=== PATIENT | female | born 1965 | race Caucasian/White ===

== ENCOUNTER 2022-10-15 17:05 | Emergency (ER) | payer MEDICARE ==
[2022-10-15 19:03] LABS: ESTIMATED GFR 108 mL/min (>60)
[2022-10-15 19:32] VITALS: BP 116/72; PULSE 82
== END 2022-10-15 20:20 | disposition home or self-care (01) ==
LOC: JP.ED 17:05
DX: N10 Acute pyelonephritis (principal); Z88.8 Allergy status to other drugs, medicaments and biological substances; Z79.899 Other long term (current) drug therapy
CPT/HCPCS: 36415; 80053; 81001; 85025; 86140; 87086; 87088; 87186; 99283

== ENCOUNTER 2022-11-08 20:17 | Emergency (ER) | payer MEDICARE ==
[2022-11-08 21:51] LABS: ESTIMATED GFR 108 mL/min (>60)
[2022-11-08 21:54] VITALS: BP 130/99; PULSE 79
== END 2022-11-08 23:05 | disposition home or self-care (01) ==
LOC: JP.ED 20:17
DX: R42 Dizziness and giddiness (principal); K21.9 Gastro-esophageal reflux disease without esophagitis; Z88.8 Allergy status to other drugs, medicaments and biological substances; Z79.899 Other long term (current) drug therapy; Z86.16 Personal history of COVID-19
CPT/HCPCS: 36415; 80053; 81001; 85025; 93971-RT; 99282; 99284

== ENCOUNTER 2023-03-30 21:09 | Emergency (ER) | payer MEDICARE ==
[2023-03-30] MEDS ORDERED: Morphine 2 MG/ML SYRINGE IVPUSH ONE (21:26)
[2023-03-30] MEDS ORDERED: Ondansetron 4 MG/2 ML SDV IVPUSH ONE (21:26)
[2023-03-30] MEDS ORDERED: Naloxone 0.4 MG/ML SDV IVPUSH PRN (21:26)
[2023-03-30] MEDS ORDERED: Sodium Chloride 0.9% 1,000 ML IV SCH (21:30)
[2023-03-30 22:02] LABS: BASOPHILS ABSOLUTE AUTO 0.04 K/uL (0.00-0.10); BASOPHILS PERCENT AUTO 0.2 % (0.1-1.3); HEMATOCRIT 36.9 % (34.3-46.0); HEMOGLOBIN 12.5 g/dL (11.2-15.5); IMMATURE GRAN PERCENT AUTO 0.4 % (0.0-0.7); LYMPHOCYTES ABSOLUTE AUTO 0.46 K/uL (0.8-3.3); LYMPHOCYTES PERCENT AUTO 2.1 % (11.4-47.7); MEAN CORPUSCULAR HGB CONC 33.9 g/dL (31.6-35.5); MEAN CORPUSCULAR VOLUME 100.3 fL (81.4-99.0); MONOCYTES ABSOLUTE AUTO 1.08 K/uL (0.20-0.90); MONOCYTES PERCENT AUTO 4.9 % (3.3-12.6); NEUTROPHILS ABSOLUTE AUTO 20.57 K/uL (1.0-7.6); NEUTROPHILS PERCENT AUTO 92.4 % (40.0-78.1); PLATELET COUNT,PLT 557 K/uL (130-375); RED BLOOD CELL COUNT 3.68 M/uL (3.77-5.24); WHITE BLOOD CELL COUNT,WBC 22.3 K/uL (3.2-11.0)
[2023-03-30 22:10] LABS: MAGNESIUM 2.4 mg/dL (1.8-2.4)
[2023-03-30 22:22] LABS: A/G RATIO 0.8 (1.2-2.2); ALANINE AMINOTRANSFERASE,ALT 35 U/L (12-78); ALBUMIN 3.1 g/dL (3.4-5.0); ALKALINE PHOSPHATASE 147 U/L (46-116); ASPARTATE AMNIOTRANSFERASE,AST 32 U/L (15-37); BILIRUBIN TOTAL 0.8 mg/dL (0.2-1.0); BLOOD UREA NITROGEN,BUN 16 mg/dL (7-18); CARBON DIOXIDE,CO2 27 mmol/L (21-32); CHLORIDE,CL 102 mmol/L (100-108); CREATININE 0.5 mg/dL (0.6-1.0); EST CRCL DRUG DOSING (CG) 87.02 mL/min; ESTIMATED GFR 108 mL/min (>60); GLUCOSE RANDOM 109 mg/dL (74-106); POTASSIUM,K 3.2 mmol/L (3.6-5.2); PROTEIN TOTAL,TP 6.9 g/dL (6.4-8.2); SODIUM,NA 140 mmol/L (140-148)
[2023-03-30 22:24] LABS: ANION GAP 14.2 mmol/L (5.0-14.0)
[2023-03-30] MEDS: Piperacillin/Tazobactam 3.375 GM in Sodium Chloride 0.9% 50 ML IV SCH (23:06)
[2023-03-30] MEDS ORDERED: Potassium Chloride 20 MEQ in Premix Bag 1 BAG IV ONE (23:23)
[2023-03-31] MEDS ORDERED: Morphine 2 MG/ML SYRINGE IVPUSH ONE (00:01)
[2023-03-31] MEDS ORDERED: Bisacodyl 5 MG Tab PO PRN (01:27)
[2023-03-31] MEDS ORDERED: Ondansetron 4 MG/2 ML SDV IV PRN (01:27)
[2023-03-31] MEDS ORDERED: Pantoprazole 40 MG Vial IV ONE (01:27)
[2023-03-31] MEDS ORDERED: Enoxaparin 40 MG/0.4 ML Syringe SUBCUT SCH ×2 (01:30→21:00)
[2023-03-31] MEDS ORDERED: Sodium Chloride 0.9% 1,000 ML IV SCH ×2 (01:30→12:00)
[2023-03-31] MEDS: Morphine 2 MG/ML SYRINGE IVPUSH PRN ×2 (02:21→17:50)
[2023-03-31] MEDS: Piperacillin/Tazobactam 3.375 GM in Sodium Chloride 0.9% 50 ML IV SCH (04:09)
[2023-03-31 05:49] LABS: BASOPHILS ABSOLUTE AUTO 0.03 K/uL (0.00-0.10); BASOPHILS PERCENT AUTO 0.1 % (0.1-1.3); HEMATOCRIT 34.8 % (34.3-46.0); HEMOGLOBIN 11.8 g/dL (11.2-15.5); IMMATURE GRAN ABSOLUTE AUTO 0.12 K/uL (0.00-0.23); IMMATURE GRAN PERCENT AUTO 0.5 % (0.0-0.7); LYMPHOCYTES ABSOLUTE AUTO 0.92 K/uL (0.8-3.3); LYMPHOCYTES PERCENT AUTO 4.2 % (11.4-47.7); MEAN CORPUSCULAR HGB CONC 33.9 g/dL (31.6-35.5); MEAN CORPUSCULAR VOLUME 100.3 fL (81.4-99.0); MONOCYTES ABSOLUTE AUTO 0.97 K/uL (0.20-0.90); MONOCYTES PERCENT AUTO 4.4 % (3.3-12.6); NEUTROPHILS ABSOLUTE AUTO 20.04 K/uL (1.0-7.6); NEUTROPHILS PERCENT AUTO 90.8 % (40.0-78.1); PLATELET COUNT,PLT 553 K/uL (130-375); RED BLOOD CELL COUNT 3.47 M/uL (3.77-5.24); WHITE BLOOD CELL COUNT,WBC 22.1 K/uL (3.2-11.0)
[2023-03-31 06:09] LABS: CALCIUM 7.9 mg/dL (8.5-10.1); CREATININE 0.5 mg/dL (0.6-1.0); EST CRCL DRUG DOSING (CG) 87.02 mL/min; POTASSIUM,K 3.6 mmol/L (3.6-5.2)
[2023-03-31 06:11] LABS: ANION GAP 13.6 mmol/L (5.0-14.0)
[2023-03-31] MEDS ORDERED: Piperacillin/Tazobactam/Dext 3.375 GM in Premix Bag 1 BAG IV SCH (10:00)
[2023-03-31] MEDS: Acetaminophen 325 MG Tab PO PRN ×2 (10:02→22:30)
[2023-03-31] MEDS: Folic Acid 1 MG Tab PO SCH (10:03)
[2023-03-31] MEDS: Docusate Sodium 100 MG Cap PO SCH ×2 (10:04→21:54)
[2023-03-31] MEDS: oxyCODONE 5 MG Tab PO PRN ×2 (10:04→21:54)
[2023-03-31] MEDS: Vitamin B6-pyridOXINE 50 MG Tab PO SCH (10:04)
[2023-03-31] MEDS ORDERED: Bisacodyl 5 MG Tab PO ONE (10:30)
[2023-03-31] MEDS ORDERED: Metoclopramide 10 MG/2 ML SDV IVPUSH ONE (11:30)
[2023-03-31] MEDS ORDERED: Polyethylene Glycol 3350 Powder 17 GM Packet PO ONE (11:39)
[2023-03-31 13:06] LABS: APPEARANCE,URINE SLIGHTLY CLOUDY (CLEAR); BILIRUBIN,URINE MODERATE (NEGATIVE); COLOR,URINE YELLOW (YELLOW); GLUCOSE,URINE NEGATIVE (NEGATIVE); KETONES,URINE 15 mg/dL (NEGATIVE); LEUKOCYTE ESTERASE,URINE NEGATIVE (NEGATIVE); NITRITE,URINE NEGATIVE (NEGATIVE); OCCULT BLOOD,URINE MODERATE (NEGATIVE); PH,URINE 5.5 (5.0-8.0); PROTEIN,URINE 30 mg/dL (NEGATIVE)
[2023-03-31 13:18] LABS: AMORPHOUS SEDIMENT,URINE MANY; BACTERIA,URINE FEW; EPITHELIAL CELLS,URINE MODERATE; MUCUS,URINE MANY; WBC,URINE 0-5 (0-5)
[2023-04-01] MEDS: oxyCODONE 5 MG Tab PO PRN ×3 (03:16→14:54)
[2023-04-01 05:25] LABS: HEMOGLOBIN 9.3 g/dL (11.2-15.5); MEAN CORPUSCULAR HEMOGLOBIN 33.6 pg (31.6-35.5); MEAN CORPUSCULAR HGB CONC 33.2 g/dL (31.6-35.5); MEAN CORPUSCULAR VOLUME 101.1 fL (81.4-99.0); RED BLOOD CELL COUNT 2.77 M/uL (3.77-5.24); WHITE BLOOD CELL COUNT,WBC 14.4 K/uL (3.2-11.0)
[2023-04-01 05:39] LABS: CALCIUM 7.7 mg/dL (8.5-10.1); CREATININE 0.5 mg/dL (0.6-1.0); EST CRCL DRUG DOSING (CG) 87.02 mL/min; POTASSIUM,K 3.1 mmol/L (3.6-5.2)
[2023-04-01 05:45] LABS: ANION GAP 10.1 mmol/L (5.0-14.0)
[2023-04-01] MEDS: Folic Acid 1 MG Tab PO SCH (08:09)
[2023-04-01] MEDS: Docusate Sodium 100 MG Cap PO SCH (08:09)
[2023-04-01] MEDS: Vitamin B6-pyridOXINE 50 MG Tab PO SCH (08:09)
[2023-04-01] MEDS ORDERED: Potassium Chloride 20 MEQ Tab.ER PO ONE (09:00)
[2023-04-01 11:07] VITALS: BP 108/58; PULSE 103
== END 2023-04-01 15:10 | disposition home or self-care (01) ==
LOC: JP.ED 21:09 → JP.MS 03-31 00:31
PROVIDERS: ADMIT Internal Medicine; ATTEND Internal Medicine
DX: K59.00 Constipation, unspecified (principal); K21.9 Gastro-esophageal reflux disease without esophagitis; Z86.16 Personal history of COVID-19; Z88.8 Allergy status to other drugs, medicaments and biological substances; Z79.82 Long term (current) use of aspirin; Z79.899 Other long term (current) drug therapy; Z20.822 Contact with and (suspected) exposure to COVID-19
CPT/HCPCS: 36415; 51701; 74176; 80048; 80053; 81001; 82150; 83605; 83690; 83735; 85025; 85027; 86140; 96361; 96365; 96366; 96367; 96372; 96375; 96376; 99222; 99238; 99285; A9270; C9113; G0378; J1650; J2270; J2405; J2543; J2765; J3480; J3490; J7030; U0002

== ENCOUNTER 2023-05-24 19:00 | Emergency (ER) | payer MEDICARE ==
[2023-05-24 19:45] VITALS: BP 139/93; PULSE 82
[2023-05-24] MEDS ORDERED: Sodium Chloride 0.9% 10 ML Syringe FLUSH PRN (19:56)
[2023-05-24] MEDS ORDERED: Sodium Chloride 0.9% 1,000 ML IV SCH (20:00)
[2023-05-24 20:03] LABS: APPEARANCE,URINE CLEAR (CLEAR); BILIRUBIN,URINE NEGATIVE (NEGATIVE); COLOR,URINE YELLOW (YELLOW); GLUCOSE,URINE NEGATIVE (NEGATIVE); KETONES,URINE NEGATIVE (NEGATIVE); LEUKOCYTE ESTERASE,URINE NEGATIVE (NEGATIVE); NITRITE,URINE NEGATIVE (NEGATIVE); OCCULT BLOOD,URINE SMALL (NEGATIVE); PH,URINE 7.5 (5.0-8.0); PROTEIN,URINE NEGATIVE (NEGATIVE); UROBILINOGEN,URINE 0.2 EU/dL (0.2-1.0)
[2023-05-24 20:13] LABS: BASOPHILS PERCENT AUTO 0.4 % (0.1-1.3); EOSINOPHILS ABSOLUTE AUTO 0.14 K/uL (0.00-0.40); EOSINOPHILS PERCENT AUTO 2.5 % (0.0-5.4); HEMOGLOBIN 11.9 g/dL (11.2-15.5); IMMATURE GRAN PERCENT AUTO 0.4 % (0.0-0.7); LYMPHOCYTES PERCENT AUTO 21.6 % (11.4-47.7); MEAN CORPUSCULAR HEMOGLOBIN 32.1 pg (31.6-35.5); MEAN CORPUSCULAR VOLUME 94.3 fL (81.4-99.0); MONOCYTES ABSOLUTE AUTO 0.43 K/uL (0.20-0.90); MONOCYTES PERCENT AUTO 7.7 % (3.3-12.6); NEUTROPHILS ABSOLUTE AUTO 3.74 K/uL (1.0-7.6); NEUTROPHILS PERCENT AUTO 67.4 % (40.0-78.1); PLATELET COUNT,PLT 334 K/uL (130-375); RED BLOOD CELL COUNT 3.71 M/uL (3.77-5.24); WHITE BLOOD CELL COUNT,WBC 5.6 K/uL (3.2-11.0)
[2023-05-24 20:13] LABS: AMORPHOUS SEDIMENT,URINE NOT SEEN; BACTERIA,URINE RARE; EPITHELIAL CELLS,URINE FEW; MUCUS,URINE NOT SEEN; WBC,URINE 0-5 (0-5)
[2023-05-24 20:15] LABS: BASOPHILS ABSOLUTE AUTO 0.02 K/uL (0.00-0.10); IMMATURE GRAN ABSOLUTE AUTO 0.02 K/uL (0.00-0.23)
[2023-05-24 20:33] LABS: ALANINE AMINOTRANSFERASE,ALT 31 U/L (12-78); ALBUMIN 3.4 g/dL (3.4-5.0); ALKALINE PHOSPHATASE 86 U/L (46-116); ANION GAP 9.2 mmol/L (5.0-14.0); ASPARTATE AMNIOTRANSFERASE,AST 28 U/L (15-37); BILIRUBIN TOTAL 0.3 mg/dL (0.2-1.0); BLOOD UREA NITROGEN,BUN 11 mg/dL (7-18); C-REACTIVE PROTEIN < 0.05 mg/dL (0.0-0.3); CALCIUM 8.2 mg/dL (8.5-10.1); CARBON DIOXIDE,CO2 30 mmol/L (21-32); CHLORIDE,CL 106 mmol/L (100-108); CREATININE 0.5 mg/dL (0.6-1.0); EST CRCL DRUG DOSING (CG) 85.94 mL/min; ESTIMATED GFR 107 mL/min (>60); GLUCOSE RANDOM 93 mg/dL (74-106); POTASSIUM,K 3.2 mmol/L (3.6-5.2); PROTEIN TOTAL,TP 6.8 g/dL (6.4-8.2); SODIUM,NA 142 mmol/L (140-148)
[2023-05-24] MEDS ORDERED: Ketorolac 15 MG/ML SDV IVPUSH ONE (20:33)
[2023-05-24] MEDS ORDERED: Ondansetron 4 MG/2 ML SDV IVPUSH ONE ×2 (20:33→23:10)
[2023-05-24] MEDS ORDERED: diphenhydrAMINE 25 MG Cap PO ONE (22:17)
[2023-05-24] MEDS ORDERED: Acetaminophen/HYDROcodone 325-5 MG Tab PO ONE (22:17)
[2023-05-24] MEDS ORDERED: HYDROmorphone 0.5 MG/0.5 ML Syringe IVPUSH ONE (23:10)
[2023-05-25] MEDS ORDERED: Ondansetron 4 MG Tab.DIS PO ONE (00:31)
== END 2023-05-25 00:50 | disposition home or self-care (01) ==
LOC: JP.ED 19:00
DX: R10.11 Right upper quadrant pain (principal); M54.16 Radiculopathy, lumbar region; M06.9 Rheumatoid arthritis, unspecified; M47.816 Spondylosis without myelopathy or radiculopathy, lumbar region; K21.9 Gastro-esophageal reflux disease without esophagitis; Z86.16 Personal history of COVID-19; Z79.899 Other long term (current) drug therapy; Z91.040 Latex allergy status
CPT/HCPCS: 36415; 74176; 80053; 81001; 83690; 85025; 86140; 96361; 96374; 96375; 96376; 99284; A9270; J1170; J1885; J2405; J3490; J7030; Q0162

== ENCOUNTER 2023-08-02 08:36 | Emergency (ER) | payer MEDICARE ==
[2023-08-02] MEDS ORDERED: Ondansetron 4 MG/2 ML SDV IVPUSH ONE (09:03)
[2023-08-02 09:24] LABS: APPEARANCE,URINE SLIGHTLY CLOUDY (CLEAR); BILIRUBIN,URINE SMALL (NEGATIVE); COLOR,URINE YELLOW (YELLOW); GLUCOSE,URINE NEGATIVE (NEGATIVE); KETONES,URINE TRACE mg/dL (NEGATIVE); LEUKOCYTE ESTERASE,URINE NEGATIVE (NEGATIVE); NITRITE,URINE NEGATIVE (NEGATIVE); OCCULT BLOOD,URINE LARGE (NEGATIVE); PH,URINE 5.5 (5.0-8.0); PROTEIN,URINE 100 mg/dL (NEGATIVE); UROBILINOGEN,URINE 0.2 EU/dL (0.2-1.0)
[2023-08-02 09:31] LABS: AMORPHOUS SEDIMENT,URINE FEW; BACTERIA,URINE MODERATE; EPITHELIAL CELLS,URINE MODERATE; MUCUS,URINE MANY; RBC,URINE 75-100 (0-5)
[2023-08-02 09:44] LABS: BASOPHILS ABSOLUTE AUTO 0.04 K/uL (0.00-0.10); BASOPHILS PERCENT AUTO 0.5 % (0.1-1.3); EOSINOPHILS PERCENT AUTO 0.1 % (0.0-5.4); HEMATOCRIT 36.8 % (34.3-46.0); HEMOGLOBIN 12.6 g/dL (11.2-15.5); IMMATURE GRAN ABSOLUTE AUTO 0.04 K/uL (0.00-0.23); IMMATURE GRAN PERCENT AUTO 0.5 % (0.0-0.7); LYMPHOCYTES ABSOLUTE AUTO 0.81 K/uL (0.8-3.3); LYMPHOCYTES PERCENT AUTO 9.7 % (11.4-47.7); MEAN CORPUSCULAR HEMOGLOBIN 31.4 pg (31.6-35.5); MEAN CORPUSCULAR HGB CONC 34.2 g/dL (31.6-35.5); MEAN CORPUSCULAR VOLUME 91.8 fL (81.4-99.0); MONOCYTES ABSOLUTE AUTO 0.33 K/uL (0.20-0.90); MONOCYTES PERCENT AUTO 3.9 % (3.3-12.6); NEUTROPHILS ABSOLUTE AUTO 7.15 K/uL (1.0-7.6); NEUTROPHILS PERCENT AUTO 85.3 % (40.0-78.1); PLATELET COUNT,PLT 347 K/uL (130-375); RED BLOOD CELL COUNT 4.01 M/uL (3.77-5.24); WHITE BLOOD CELL COUNT,WBC 8.4 K/uL (3.2-11.0)
[2023-08-02 09:48] LABS: EOSINOPHILS ABSOLUTE AUTO 0.01 K/uL (0.00-0.40)
[2023-08-02 10:05] LABS: A/G RATIO 0.9 (1.2-2.2); ALANINE AMINOTRANSFERASE,ALT 12 U/L (12-78); ALBUMIN 3.4 g/dL (3.4-5.0); ALKALINE PHOSPHATASE 100 U/L (46-116); ASPARTATE AMNIOTRANSFERASE,AST 22 U/L (15-37); BILIRUBIN TOTAL 0.4 mg/dL (0.2-1.0); BLOOD UREA NITROGEN,BUN 16 mg/dL (7-18); CALCIUM 8.6 mg/dL (8.5-10.1); CARBON DIOXIDE,CO2 25 mmol/L (21-32); CHLORIDE,CL 106 mmol/L (100-108); CREATININE 0.6 mg/dL (0.6-1.0); EST CRCL DRUG DOSING (CG) 71.62 mL/min; ESTIMATED GFR 103 mL/min (>60); GLUCOSE RANDOM 112 mg/dL (74-106); POTASSIUM,K 3.4 mmol/L (3.6-5.2); SODIUM,NA 143 mmol/L (140-148)
[2023-08-02 10:06] LABS: ANION GAP 15.4 mmol/L (5.0-14.0)
[2023-08-02] MEDS ORDERED: cefTRIAXone 1 GM in Sodium Chloride 0.9% 50 ML IV ONE (10:32)
[2023-08-02 11:25] VITALS: BP 98/56; PULSE 80
== END 2023-08-02 11:40 | disposition home or self-care (01) ==
LOC: JP.ED 08:36
DX: N20.1 Calculus of ureter (principal); N23 Unspecified renal colic; K21.9 Gastro-esophageal reflux disease without esophagitis; Z87.891 Personal history of nicotine dependence; Z79.899 Other long term (current) drug therapy; Z91.040 Latex allergy status
CPT/HCPCS: 36415; 74176; 80053; 81001; 83690; 85025; 87086; 96365; 96375; 99284; J0696; J2405; J3490